=== PATIENT | male | born 1965 | race Caucasian/White ===

== ENCOUNTER 2017-02-06 01:51 | Emergency (ER) | payer MEDICARE, SELFPAY ==
[~2017-02-06] VITALS: Ht 170.2 cm; Wt 77.9 kg
[2017-02-06] MEDS ORDERED: ESTR2TAB PO (02:17)
[2017-02-06] MEDS ORDERED: SPIR100T2 PO (02:17)
[2017-02-06] MEDS ORDERED: ASPIRIN 81 MG TABLET CHEW PO ONE (02:30)
[2017-02-06] MEDS ORDERED: ASPIRIN 81 MG TABLET CHEW ONE (02:36)
[2017-02-06 02:54] LABS: ASPARTATE AMINO TRANSFERASE 15 U/L (15-37); BLOOD UREA NITROGEN 13 mg/dL (7-18)
[2017-02-06 03:01] LABS: IS PT STATUS REG ER OR PRE ER? YES
[2017-02-06 04:15] VITALS: BP 96/65
== END 2017-02-06 04:19 | disposition home or self-care (01) ==
LOC: ED 03:59
DX: M94.0 Chondrocostal junction syndrome [Tietze] (principal); R07.89 Other chest pain; Z87.891 Personal history of nicotine dependence; F12.10 Cannabis abuse, uncomplicated
CPT/HCPCS: 36415; 71010; 80053; 84484; 85025; 93005; 99285

== ENCOUNTER 2019-09-11 21:24 | Emergency (ER) | payer MEDICARE, MEDICAID ==
[~2019-09-11] VITALS: Ht 170.2 cm; Wt 80.6 kg
[~2019-09-11 21:24] MED LIST: ESTR2TAB PO; SPIR100T4 PO
--- NOTE | 2019-09-11 22:08 | NUR ---
Pt to ED from home "I have a UTI, I'm worried about my kidneys". has hx Ecoli UTI x6 months. got multiple scripts abx but never finished them"they made me so sick". recently on amoxicillin. +frequency +burning +hematuria. Took spironolactone. hx transgender, stopped taking estradiol/aldactone. has bumps and itchy skin x6 months "I was told it wasn't scabies.". also c/o flank pain on L side. UA sent. awaiting labs. Goes by "[facility]ille".
[2019-09-11 22:14] LABS: BASOPHILS # (AUTO) 0.05 x10^3/uL (0-0.1); BASOPHILS % (AUTO) 1 % (0-1); EOSINOPHILS # (AUTO) 0.12 x10^3/uL (0-0.4); EOSINOPHILS % (AUTO) 2 % (1-7); LYMPHOCYTES # (AUTO) 2.19 x10^3/uL (1-3.4); LYMPHOCYTES % (AUTO) 31 % (22-44); MD NO; MEAN CORPUSCULAR HEMOGLOBIN 30.7 pg (27.0-34.8); MEAN CORPUSCULAR HGB CONC 33.5 g/dL (32.4-35.8); MEAN CORPUSCULAR VOLUME 91.6 fL (80-100); MEAN PLATELET VOLUME 8.6 fL (7.4-10.4); MONOCYTES # (AUTO) 0.78 x10^3/uL (0.2-0.8); MONOCYTES % (AUTO) 11 % (2-9); NEUTROPHILS # (AUTO) 4.05 x10^3/uL (1.8-6.8); NEUTROPHILS % (AUTO) 56 % (42-75); PLATELET COUNT 264 x10^3/uL (130-400); RED BLOOD COUNT 4.39 x10^6/uL (3.82-5.3); RED CELL DISTRIBUTION WIDTH 13.6 % (9.6-15.2)
[2019-09-11 22:16] LABS: ALANINE AMINOTRANSFERASE 21 U/L (12-78); ALBUMIN 3.4 g/dL (3.4-5.0); ANION GAP 5 mmol/L (5-15); CALCIUM 8.7 mg/dL (8.5-10.1); CHLORIDE 107 mmol/L (98-107); CREATININE 0.97 mg/dL (0.55-1.02)
[2019-09-11 22:18] LABS: ALKALINE PHOSPHATASE 47 U/L (45-117); BILIRUBIN,TOTAL 0.7 mg/dL (0.2-1.0); TOTAL PROTEIN 7.2 g/dL (6.4-8.2)
[2019-09-11 22:24] VITALS: BP 119/70
[2019-09-11 22:30] LABS: MICROSCOPIC NOT IND
[2019-09-11 22:33] LABS: CULTURE INDICATED? NO
[2019-09-11 22:40] LABS: AMPHETAMINE SCREEN, URINE Negative (Negative); BARBITURATE SCREEN, URINE Negative (Negative); BENZODIAZEPINE SCREEN, URINE Negative (Negative); CANNABINOID SCREEN, URINE Positive (Negative); COCAINE SCREEN, URINE Negative (Negative); METHADONE SCREEN, URINE Negative (Negative); OPIATE SCREEN, URINE Negative (Negative)
--- NOTE | 2019-09-11 22:41 | NUR ---
report to yana maya. as
--- NOTE | 2019-09-11 22:46 | NUR ---
ALL RESULTS ARE BACK AT THIS TIME. CHART UP FOR RECHECK.
--- NOTE | 2019-09-11 22:52 | NUR ---
MD AT BEDSIDE TO UPDATE PT ON POC
== END 2019-09-11 23:14 | disposition home or self-care (01) ==
LOC: EDSEX 21:24 → ED 22:13
DX: L50.8 Other urticaria (principal); F12.19 Cannabis abuse with unspecified cannabis-induced disorder; F17.200 Nicotine dependence, unspecified, uncomplicated
CPT/HCPCS: 36415; 80053; 80307; 81003; 85025; 93005; 99284